=== PATIENT | female | born 1950 | race Caucasian/White ===

== ENCOUNTER 2020-03-29 13:18 | Outpatient (CLI) | payer MEDICARE, OTHER, SELFPAY ==
--- NOTE | 2020-03-29 13:20 | ECG_ITS ---
Measurements Intervals [place] Rate: 66 P: 21 MI: 172 QRS: 46 QRSD: 88 T: 67 QT: 402 QTc: 423 Interpretive Statements SINUS RHYTHM DELAYED PRECORDIAL R/S TRANSITION BORDERLINE ECG Electronically Signed On 03-29-2020 14:57:03 [employer] by Edwardo Wynne D.O.
[2020-03-29 14:06] LABS: Anion Gap 9 mmol/L (8-16); Blood Urea Nitrogen 36 mg/dL (7-17); Calcium 9.1 mg/dL (8.4-10.2); Carbon Dioxide 28 mmol/L (22-30); Chloride 100 mmol/L (98-107); Estimated Glomerular Filt Rate 37; Glucose 179 mg/dL (65-105); Potassium 4.3 mmol/L (3.4-5.0); Sodium 137 mmol/L (137-145)
== END 2020-03-29 13:19 | disposition home or self-care (01) ==
LOC: ANHSURGERY 13:20
PROVIDERS: Anesthesiology; PCP Internal Medicine; Visit Provider Otolaryngology
DX: I10 Essential (primary) hypertension (principal); E11.9 Type 2 diabetes mellitus without complications; Z79.4 Long term (current) use of insulin; Z01.818 Encounter for other preprocedural examination; R94.31 Abnormal electrocardiogram [ECG] [EKG]
CPT/HCPCS: 36415; 80048; 93005

== ENCOUNTER 2020-03-30 02:32 | Outpatient (CLI) | payer MEDICARE, OTHER, SELFPAY ==
[2020-03-30 19:52] LABS: SARS-CoV-2 RNA PCR Negative
== END 2020-03-30 02:33 | disposition home or self-care (01) ==
LOC: ANHCOVIDDT 02:33
PROVIDERS: PCP Internal Medicine; Visit Provider Otolaryngology
DX: Z01.812 Encounter for preprocedural laboratory examination (principal); Z20.828 Contact with and (suspected) exposure to other viral communicable diseases
CPT/HCPCS: 87635; C9803; U0003

== ENCOUNTER 2020-04-02 00:31 | Day surgery (SDC) | payer MEDICARE, OTHER, SELFPAY ==
[2020-03-26 15:58] VITALS: BMI 44.6
[2020-04-02] VITALS (7 sets, daily range): BP systolic 132–168; BP diastolic 51–106; PULSE 60–70; RESP 16–20; TEMP 36.2–36.6; O2SAT 94–100
--- NOTE | 2020-04-02 07:16 | P.HP_ITS ---
H&P: HPI History of Present Illness Date/Time: 04/02/20 07:16 Chief complaint: Chronic Otitis Media,Eustachian Tube Dysfunction Narrative: Evonne Collier is a 69 year old female with long history of ear tubes and ETD. Right tube chronically infected, left tube out and TM is retracted. Review of Systems Review of Systems: All systems reviewed & are unremarkable except as noted in HPI and below PMFSH Past Medical History Medical History Arthritis of right knee Cataracts, bilateral Depression GERD (gastroesophageal reflux disease) Hypercholesteremia Hypertension IDDM (insulin dependent diabetes mellitus) Rheumatic fever Seasonal allergies Shingles Sleep apnea Surgical History Surgical History H/O colonoscopy History of arthroscopy of right knee History of cardiac catheterization History of cataract extraction History of section History of left knee replacement History of tonsillectomy History of tubal ligation Hx of rectal polypectomy Social History Social History Smoking status: Never smoker Living arrangements: alone Gender identity (if verbalized by the patient): Female Spiritual care concerns: No Meds Home Medications and Allergies Home Medications Medication Instructions Recorded Confirmed Type carvedilol 6.25 mg PO BID 03/26/20 03/26/20 History clonidine 0.3 mg TRANSDERMAL WEEKLY 03/26/20 03/26/20 History ergocalciferol (vitamin D2) 50,000 mcg PO WEEKLY 03/26/20 03/26/20 History [Vitamin D2] furosemide 60 mg PO QAM 03/26/20 03/26/20 History glipizide 5 mg PO BID 03/26/20 03/26/20 History insulin glargine U-300 conc 90 unit SUBCUT HS 03/26/20 03/26/20 History [Toujeo SoloStar U-300 Insulin] metformin 1,000 mg PO BID 03/26/20 03/26/20 History pantoprazole 40 mg PO QAM 03/26/20 03/26/20 History rosuvastatin 20 mg PO DAILY 03/26/20 03/26/20 History sertraline 100 mg PO HS 03/26/20 03/26/20 History Allergies Allergy/AdvReac Type Severity Reaction Status Date / Time cefprozil Allergy Severe SOB, Verified 03/26/20 15:09 TACHYCARDIA Exam Narrative: Exam Narrative: Right tube in place and draining. Left TM retracted with effusion Assessment and Plan Assessment and plan (1) Eustachian tube dysfunction: Qualifiers: Laterality: bilateral Qualified Code(s): H69.83 - Other specified d isorders of Eustachian tube, bilateral Code(s): H69.80 - Other specified disorders of Eustachian tube, unspecified ear Status: Acute Assessment and Plan: Chronic ETD, here for Bilateral T tube placement and removal of right ear tube. Refer to outpatient H&P for full details.
--- NOTE | 2020-04-02 07:24 | WPDHPUPDATE1 ---
History and Physical Update Update Date/Time: 04/02/20 07:24 History and Physical has been reviewed, including an updated exam of the patient. There are NO changes in the patient's condition. Risks, benefits, and alternatives have been discussed and questions answered. Patient agrees to proceed with procedure.
[2020-04-02] MEDS: ACETAMINOPHEN 500 MG TABLET 1000 MG PO (07:31)
[2020-04-02] MEDS: LACTATED RINGERS 1,000 ML 30 ML IV CONT (07:36)
[2020-04-02 07:45] LABS: Glucose Point of Care 188 (65-105)
--- NOTE | 2020-04-02 08:04 | WPDANESEPPF ---
Anes - Initial Pre Proc Eval Procedure: Operation Date: 04/02/20 08:30 Proposed Procedures p Removal Right Myringotomy Tube - Zacarias Fitch MD s Bilateral Myringotomy, Insertion Of T-Tubes - Zacarias Fitch MD Date/Time: 04/02/20 08:04 Surgeon: Zacarias Fitch MD Pre Op Diagnosis: Chronic Otitis Media,Eustachian Tube Dysfunction Patient Data Age: 69 Gender: F Height: 5 ft 4 in Weight: 119.7 kg Last Vital Signs Temp 97.9 F 04/02/20 06:53 Pulse 69 04/02/20 06:53 Resp 20 04/02/20 06:53 BP 164/51 H 04/02/20 06:53 Pulse Ox 95 04/02/20 06:53 Allergies Allergy/AdvReac Type Severity Reaction Status Date / Time cefprozil Allergy Severe SOB, Verified 04/02/20 07:57 TACHYCARDIA Home Medications Medication Instructions Recorded Confirmed Type carvedilol 6.25 mg PO BID 03/26/20 04/02/20 History clonidine 0.3 mg TRANSDERMAL WEEKLY 03/26/20 04/02/20 History ergocalciferol (vitamin D2) 50,000 mcg PO WEEKLY 03/26/20 04/02/20 History [Vitamin D2] furosemide 60 mg PO QAM 03/26/20 04/02/20 History glipizide 5 mg PO BID 03/26/20 04/02/20 History insulin glargine U-300 conc 90 unit SUBCUT HS 03/26/20 04/02/20 History [Toujeo SoloStar U-300 Insulin] metformin 1,000 mg PO BID 03/26/20 04/02/20 History pantoprazole 40 mg PO QAM 03/26/20 04/02/20 History rosuvastatin 20 mg PO DAILY 03/26/20 04/02/20 History sertraline 100 mg PO HS 03/26/20 04/02/20 History Laboratory Tests 04/02/20 07:39 POC Capillary Glucose 188 mg/dl H mg/dl (65-105) Patient hx anesthesia problems: none Family hx anesthesia problems: none PMFSH Past Medical History Medical History Arthritis of right knee Cataracts, bilateral Depression GERD (gastroesophageal reflux disease) Hypercholesteremia Hypertension IDDM (insulin dependent diabetes mellitus) Rheumatic fever Seasonal allergies Shingles Sleep apnea Surgical History Surgical History H/O colonoscopy History of arthroscopy of right knee History of cardiac catheterization History of cataract extraction History of section History of left knee replacement History of tonsillectomy History of tubal ligation Hx of rectal polypectomy Social History Social History Smoking status: Never smoker Living arrangements: alone Gender identity (if verbalized by the patient): Female Spiritual care concerns: No Anes - Eval Final PreProcedure Day of Procedure 04/02/20 08:04 Patient weight: morbidly obese Heart: regular rate and rhythm Lungs: clear to auscultation Airway: Mallampati scale class III Neurological: alert and oriented Last oral intake: >/= 8 hours ASA classification: IV Emergent: no Anesthetic plan: proceed Anesthesia type and monitoring: general LMA and standard monitoring Informed Consent: The patient's anesthetic plan and its attendant risks and benefits were discussed with the patient/family/POA. Questions were solicited and answers provided to the satisfaction of the patient/family/POA.
[2020-04-02] MEDS: CIPROFLOXACIN HCL 0.3% OP SOLN 2.5 ML BTL 4 DROP EACH EAR (08:23)
--- NOTE | 2020-04-02 08:32 | PM.PROC ---
Procedure Note - Detailed Date of procedure: 04/02/20 Pre-op diagnosis: Chronic Otitis Media,Eustachian Tube Dysfunction retained right t tube with chronic infection, left TM retraction and ETD Post-op diagnosis: same Procedure performed: Right tube removal and bilateral myringotomy with tympanostomy tube placement Description of procedure: on the date of surgeyr the patient was taken to the OR and placed under general anesthesia by mask. timeout performed and she was prepped and draped in standard fashion for surgery. Right ear examined and retained tube removed with alligator forceps. Some effusion was present and suctioned. Next, a modified velasquez t-tube was replaced through the existing myringotomy. Drops applied and cotton ball placed. On the left, a myringotomy was placed anterior-inferiorly. A modified velasquez t-tube was then placed through that myringotomy incision and secured with peguero pick. Drops applied. Cotton ball placed. Procedure concluded and care of patient returned to anesthesia. She was transferred to PACU for recovery in stable condition without complication Anesthesia: MAC Surgeon: Zacarias Fitch MD Estimated blood loss (mL): 0 Drains: No Packing: No Pathology: none sent Complications: No immediate complications Condition: stable Disposition: same day Findings: retained right tube with infection. Left TM retraction
[2020-04-02 08:47] LABS: Glucose Point of Care 183 (65-105)
== END 2020-04-02 10:21 | disposition home or self-care (01) ==
PROVIDERS: PCP Internal Medicine; Visit Provider Otolaryngology
PROC: (CPT 69424; principal; 2020-04-02 08:30)
PROC: (CPT 69436; 2020-04-02 08:30)
DX: H66.93 Otitis media, unspecified, bilateral (principal); H69.83 Other specified disorders of Eustachian tube, bilateral; T85.698A Other mechanical complication of other specified internal prosthetic devices, implants and grafts, initial encounter; Y83.8 Other surgical procedures as the cause of abnormal reaction of the patient, or of later complication, without mention of misadventure at the time of the procedure; I10 Essential (primary) hypertension; E78.00 Pure hypercholesterolemia, unspecified; E11.9 Type 2 diabetes mellitus without complications; F32.9 Major depressive disorder, single episode, unspecified; K21.9 Gastro-esophageal reflux disease without esophagitis; G47.30 Sleep apnea, unspecified; Z79.84 Long term (current) use of oral hypoglycemic drugs; Z79.4 Long term (current) use of insulin; E66.01 Morbid (severe) obesity due to excess calories; Z68.42 Body mass index [BMI] 45.0-49.9, adult
CPT/HCPCS: 69436; A9270; J2704; J7120

== ENCOUNTER 2022-12-03 08:52 | Outpatient (CLI) | payer MEDICARE, OTHER, SELFPAY ==
--- NOTE | ~2022-12-03 | CT_ITS ---
EXAMINATION: CT abdomen pelvis wo con DATE: 12/03/2022 09:08 INDICATION: Upper abdominal pain. Stage IV kidney failure. Diarrhea. TECHNIQUE: Computed tomography (CT) of the abdomen and pelvis was performed without intravenous contr ast. Automated exposure control and iterative reconstruction technique were employed. Exam dose: 142 1.51 mGy-cm total exam DLP. COMPARISON: None. FINDINGS: The lung bases are clear of infiltrate or consolidation. Cardiomegaly. No pericardial or pleural effusion. The liver, gallbladder, spleen, pancreas, adrenal glands are unremarkable on this limited noncontrast examination. No urinary tract calculus or hydroureteronephrosis is detected. There is mild irregularity of the outline of both kidneys which might be due to persistent loba tion or chronic pyelonephritis or other cause of renal scarring. No renal mass lesion is evident on t his limited noncontrast examination. There is prominent calcification at the origin of both renal art eries in addition to prominent calcification at the origins of the celiac and superior mesenteric art eries. Normal caliber of the abdominal aorta; no abdominal aortic aneurysm. There is abdominal aortic, iliac and femoral artery calcification. No intraperitoneal or retroperitoneal or pelvic mass lesion or adenopathy or ascites is evident. The urinary bladder is unremarkable. The uterus and adnexal areas are likewise unremarkable. Appendix is not identified. There is diverticulosis of the colon; no CT evidence of diverticulitis. N o bowel obstruction, bowel wall thickening, pneumatosis or intraperitoneal free air is detected. Multilevel degenerative disc disease of the lumbar and lumbosacral spine and degenerative spurring of the included lower thoracic spine. No suspicious osteolytic or osteoblastic lesions are identified. IMPRESSION: Bilateral renal cortical irregularity likely due to chronic scarring; no urinary tract c alculus or hydroureteronephrosis Diverticulosis of the colon; no evidence of diverticulitis Cardiomegaly Reviewed, dictated and finalized at [facility]. Reviewed, dictated and finalized at [facility]. IMPRESSION: Bilateral renal cortical irregularity likely due to chronic scarri ng; no urinary tract calculus or hydroureteronephrosis Diverticulosis of the colon; no evidence of diverticulitis Cardiomegaly
== END 2022-12-03 08:53 | disposition home or self-care (01) ==
PROVIDERS: PCP Internal Medicine; Visit Provider Nurse Practitioner Family
DX: R10.9 Unspecified abdominal pain (principal); K57.30 Diverticulosis of large intestine without perforation or abscess without bleeding; I51.7 Cardiomegaly
CPT/HCPCS: 74176

== ENCOUNTER 2023-01-02 00:22 | Day surgery (SDC) | payer MEDICARE, OTHER, SELFPAY ==
[2022-12-22 10:29] VITALS: BMI 41.6
[2023-01-02 08:00] VITALS: BP 169/65; PULSE 61; RESP 18; TEMP 36.1; O2SAT 98; BMI 41.1
[2023-01-02] MEDS: LACTATED RINGERS 1,000 ML 150 ML IV CONT (08:25)
[2023-01-02 08:26] LABS: Glucose Point of Care 67 mg/dl (65-105)
--- NOTE | 2023-01-02 08:26 | SUR.PREOP ---
Pt's blood sugar 67. States she asymptomatic. Dr. Chowdary aware.
--- NOTE | 2023-01-02 08:37 | PM.HPGS ---
History of Present Illness History of Present Illness Consent: Risks, benefits, and alternatives have been discussed and questions answered. Patient agrees to proceed with procedure. Chief complaint: GERD, abdominal pain, abdominal distension Narrative: Evonne Collier is a 72 year old female Presents for EGD. Patient complains of several months of epigastric tenderness. She states it does not bother her when she sits still but upon pushing on the upper port of her abdomen she is somewhat tender. She denies any vomiting. She states diet does not change this. Bowel habits did not change this. She has been treated with PPI acid suppression for acid reflux for sent many years. This has not implement this discomfort. Patient referred for EGD today because of epigastric discomfort. Family history is noncontributory. Patient denies any weight loss. Past medical history is significant for colon polyps. Review of Systems Review of Systems: Review of systems noncontributory. [facility] Past Medical History Medical History (Updated 01/02/23 @ 08:39 by Robinson Khan MD) Abdominal pain Arthritis of right knee Bloating Cataracts, bilateral Depression GERD (gastroesophageal reflux disease) Hypercholesteremia Hypertension IDDM (insulin dependent diabetes mellitus) Rheumatic fever Seasonal allergies Shingles Sleep apnea Surgical History Surgical History H/O colonoscopy History of arthroscopy of right knee History of cardiac catheterization History of cataract extraction History of section History of left knee replacement History of tonsillectomy History of tubal ligation Hx of rectal polypectomy Social History Social History Smoking status: Never smoker Alcohol intake: never Substance use: never Substance use type: does not use Lack of Transportation: No Lack of Food: Never True Current Housing: I Have Housing Concerned About Future Housing: No Difficulty Paying Gas/Electric Bills: No Difficulty Paying for Meds: No Currently Unemployed: No Education: High School Diploma/GED Living arrangements: with family Gender identity (if verbalized by the patient): Female Spiritual care concerns: No Meds Home Medications and Allergies Home Medications Medication Instructions Recorded Confirmed Type ergocalciferol (vitamin D2) 1,250 50,000 mcg PO WEEKLY 03/26/20 01/02/23 History mcg (50,000 unit) capsule (Vitamin D2) insulin glargine U-300 conc 300 90 unit subcut HS 03/26/20 01/02/23 History unit/mL (1.5 mL) subcutaneous pen (Jean-Pierre SoloStar U-300 Insulin) sertraline 100 mg tablet 100 mg PO HS 03/26/20 01/02/23 History allopurinol 100 mg tablet 100 mg PO DAILY 01/29/22 01/02/23 History calcitriol 0.25 mcg capsule 0.25 mcg PO DAILY 01/29/22 01/02/23 History empagliflozin 25 mg tablet 25 mg PO DAILY 01/29/22 01/02/23 History (Jardiance) gabapentin 300 mg capsule 300 mg PO DAILY 01/29/22 01/02/23 History semaglutide 0.25 mg or 0.5 mg (2 0.25 mg subcut WEEKLY 01/29/22 01/02/23 History mg/1.5 mL) subcutaneous pen injector (Ozempic) vitamin B complex (B 1 tablet PO DAILY 01/29/22 01/02/23 History Complex-Vitamin B12 tablet) carvedilol 3.125 mg tablet 3.125 mg PO BID #180 tabs 03/18/22 01/02/23 Rx apixaban 5 mg tablet (Eliquis) 5 mg PO BID #180 tabs 06/09/22 01/02/23 Rx flecainide 50 mg tablet 50 mg PO Q12H #180 tabs 06/11/22 01/02/23 Rx pantoprazole 40 mg tablet,delayed 40 mg PO QAM #90 tabs 06/11/22 01/02/23 Rx release furosemide 40 mg tablet 40 mg PO DAILY #90 tabs 07/22/22 01/02/23 Rx losartan 50 mg tablet 50 mg PO DAILY #90 tabs 07/22/22 01/02/23 Rx rosuvastatin 5 mg tablet 5 mg PO DAILY #90 tabs 07/22/22 01/02/23 Rx fenofibrate 160 mg tablet 160 mg PO DAILY #90 tabs 08/14/22 01/02/23 Rx hydralazine 50 mg tablet 50 mg PO TID #270 tabs 08
--- NOTE | 2023-01-02 08:38 | P.PNAN_ITS ---
Anes - Initial Pre Proc Eval Procedure: Operation Date: 01/02/23 09:00 Proposed Procedures p Esophagogastroduodenoscopy - Robinson Khan MD Date/Time: 01/02/23 08:38 Surgeon: Robinson Khan MD Pre Op Diagnosis: GERD, abdominal pain, abdominal distension Patient Data Age: 72 Gender: F Height: 1.63 m Weight: 108.6 kg Last Vital Signs Temp 96.9 F L 01/02/23 08:00 Pulse 61 01/02/23 08:00 Resp 18 01/02/23 08:00 BP 169/65 H 01/02/23 08:00 Pulse Ox 98 01/02/23 08:00 O2 Del Method Room Air 01/02/23 08:00 Allergies Allergy/AdvReac Type Severity Reaction Status Date / Time cefprozil Allergy Severe SOB, Verified 12/22/22 10:25 TACHYCARDIA Home Medications Medication Instructions Recorded Confirmed Type ergocalciferol (vitamin D2) 1,250 50,000 mcg PO WEEKLY 03/26/20 01/02/23 History mcg (50,000 unit) capsule (Vitamin D2) insulin glargine U-300 conc 300 90 unit subcut HS 03/26/20 01/02/23 History unit/mL (1.5 mL) subcutaneous pen (Toujeo SoloStar U-300 Insulin) sertraline 100 mg tablet 100 mg PO HS 03/26/20 01/02/23 History allopurinol 100 mg tablet 100 mg PO DAILY 01/29/22 01/02/23 History calcitriol 0.25 mcg capsule 0.25 mcg PO DAILY 01/29/22 01/02/23 History empagliflozin 25 mg tablet 25 mg PO DAILY 01/29/22 01/02/23 History (Jardiance) gabapentin 300 mg capsule 300 mg PO DAILY 01/29/22 01/02/23 History semaglutide 0.25 mg or 0.5 mg (2 0.25 mg subcut WEEKLY 01/29/22 01/02/23 History mg/1.5 mL) subcutaneous pen injector (Ozempic) vitamin B complex (B 1 tablet PO DAILY 01/29/22 01/02/23 History Complex-Vitamin B12 tablet) carvedilol 3.125 mg tablet 3.125 mg PO BID #180 tabs 03/18/22 01/02/23 Rx apixaban 5 mg tablet (Eliquis) 5 mg PO BID #180 tabs 06/09/22 01/02/23 Rx flecainide 50 mg tablet 50 mg PO Q12H #180 tabs 06/11/22 01/02/23 Rx pantoprazole 40 mg tablet,delayed 40 mg PO QAM #90 tabs 06/11/22 01/02/23 Rx release furosemide 40 mg tablet 40 mg PO DAILY #90 tabs 07/22/22 01/02/23 Rx losartan 50 mg tablet 50 mg PO DAILY #90 tabs 07/22/22 01/02/23 Rx rosuvastatin 5 mg tablet 5 mg PO DAILY #90 tabs 07/22/22 01/02/23 Rx fenofibrate 160 mg tablet 160 mg PO DAILY #90 tabs 08/14/22 01/02/23 Rx hydralazine 50 mg tablet 50 mg PO TID #270 tabs 12/22/22 01/02/23 Rx Laboratory Tests 01/02/23 08:17 POC Capillary Glucose 67 mg/dl (65-105) Patient hx anesthesia problems: none Family hx anesthesia problems: none Results Review: All pre-operative results and documents have been reviewed as part of the pre- operative evaluation. [facility] Past Medical History Medical History (Updated 11/26/22 @ 10:33 by MICHAEL Chang) Abdominal pain Arthritis of right knee Bloating Cataracts, bilateral Depression GERD (gastroesophageal reflux disease) Hypercholesteremia Hypertension IDDM (insulin dependent diabetes mellitus) Rheumatic fever Seasonal allergies Shingles Sleep apnea Surgical History Surgical History H/O colonoscopy History
[2023-01-02] MEDS: DEXTROSE 50% 25 GM/50 ML SYRINGE IV PUSH (08:43)
[2023-01-02] MEDS: BENZOCAINE (*SP) 60 ML SPRAY CAN (HURRICAINE) 1 SPRAY MUCOUS MEM (09:37)
[2023-01-02 09:46] VITALS: BP 123/55; PULSE 57; RESP 22; O2SAT 97
[2023-01-02 09:56] VITALS: BP 138/74; PULSE 55; RESP 18; O2SAT 97
[2023-01-02 10:18] LABS: Glucose Point of Care 86 mg/dl (65-105)
== END 2023-01-02 10:32 | disposition home or self-care (01) ==
PROVIDERS: PCP Internal Medicine; Visit Provider Internal Medicine Gastroenterology
PROC: 0DJ08ZZ Inspection of Upper Intestinal Tract, Via Natural or Artificial Opening Endoscopic (ICD-10-PCS; CPT 43235; principal; 2023-01-02 09:00)
DX: R10.13 Epigastric pain (principal); K21.9 Gastro-esophageal reflux disease without esophagitis; I10 Essential (primary) hypertension; E11.9 Type 2 diabetes mellitus without complications; E78.00 Pure hypercholesterolemia, unspecified; G47.30 Sleep apnea, unspecified; F32.A Depression, unspecified; Z79.01 Long term (current) use of anticoagulants; Z79.4 Long term (current) use of insulin; Z79.84 Long term (current) use of oral hypoglycemic drugs; Z79.899 Other long term (current) drug therapy
CPT/HCPCS: 43239; 82948; 87081; J2704; J7120

== ENCOUNTER 2023-08-14 08:36 | Outpatient (CLI) | payer MEDICARE, OTHER, SELFPAY ==
--- NOTE | 2023-08-14 09:14 | ECHO_ITS ---
Patient Info Name: Evonne Collier Age: 72 years : 1950 Gender: Female Ht: 64 in Wt: 245 lbs BSA: 2.30 m2 HR: 88 bpm BP: 156 / 79 mmHg Technical Quality: Fair Exam Date: 08/14/2023 9:28 AM Exam Location: Echo Lab Patient Status: Outpatient Admit Date: 08/14/2023 Staff Ordering Physician: Edwardo Wynne DO Superintendent Local: Jackeline Martins RDCS Attending Provider: Edwardo Wynne DO Referring Physician: Ricci WILSON; Exam Type: CA echo doppler color flow Study Info Indications I35.1 - Nonrheumatic aortic (valve) insufficiency Complete two-dimensional, color flow and Doppler transthoracic echocardiogram is performed. Summary 1. Complete two-dimensional, color flow and Doppler transthoracic echocardiogram is performed. 2. Left ventricular chamber dimension is normal. 3. Left ventricular systolic function is normal, estimated at 60-65%. 4. The left ventricular diastolic function is grade I diastolic dysfunction. 5. E/e' 17 is elevated. 6. Left atrial chamber dimension is moderately enlarged. 7. Right atrial chamber dimension is mildly enlarged. 8. There is mild aortic valve regurgitation. 9. There is mild to moderate mitral valve regurgitation. 10. There is trace tricuspid valve regurgitation. 11. No pulmonary hypertension, estimated pulmonary arterial systolic pressure is 37 mmHg. Left Ventricle E/e' 17 is elevated. Left ventricular chamber dimension is normal. Left ventricular systolic function is normal, estimated at 60-65%. The left ventricular diastolic function is grade I diastolic dysfunction. Right Ventricle Right ventricular systolic function is normal and with normal TAPSE 2.6 cm. Right ventricular chamber dimension is normal. Left Atria Left atrial chamber dimension is moderately enlarged. Right Atria Right atrial chamber dimension is mildly enlarged. Aortic Valve The aortic valve is trileaflet. There is no aortic valve stenosis. There is mild aortic valve regurgitation. Pulmonic Valve There is no pulmonic regurgitation. Mitral Valve There is no mitral valve stenosis. There is mild to moderate mitral valve regurgitation. Tricuspid Valve There is trace tricuspid valve regurgitation. No pulmonary hypertension, estimated pulmonary arterial systolic pressure is 37 mmHg. Pericardium/Pleural There is no pericardial effusion. Inferior Vena Cava Normal inferior vena cava with >50% collapse upon inspiration consistent with normal right atrial pressure, 5 mmHg. Aorta The aortic root size at the sinus of Valsalva is normal. Left Ventricular Outflow Tract Name Value Normal LVOT 2D LVOT Diameter 2.1 cm LVOT Doppler LVOT Peak Gradient 5 mmHg LVOT Mean Gradient 3 mmHg LVOT VTI 26 cm LVOT VTI/AV VTI Ratio 0.7 LVOT Stroke Volume 87 ml LVOT CO 15.8 l/min LVOT CI 6.9 l/min/m2 Pulmonic Valve Name Value Normal
== END 2023-08-14 08:37 | disposition home or self-care (01) ==
LOC: ANHCARD 08:38
PROVIDERS: PCP Internal Medicine; Visit Provider Internal Medicine Cardiovascular Disease
DX: I35.1 Nonrheumatic aortic (valve) insufficiency (principal); I34.0 Nonrheumatic mitral (valve) insufficiency
CPT/HCPCS: 93306